=== PATIENT | male | born 1980 ===

== ENCOUNTER 2023-11-16 18:07 | Emergency (ER) | payer OTHER ==
[2023-11-16] MEDS: Sodium Chloride 0.9% 10 ML Syringe FLUSH PRN (18:42)
[2023-11-16 18:44] LABS: BASOPHILS PERCENT AUTO 0.4 % (0.0-1.0); EOSINOPHILS PERCENT AUTO 2.3 % (1.0-3.0); HEMATOCRIT 49.7 % (40.0-54.0); HEMOGLOBIN 17.6 g/dL (14.0-18.0); LYMPHOCYTES PERCENT AUTO 31.9 % (20.5-50.1); MEAN CORPUSCULAR HEMOGLOBIN 31.6 pg (27.0-34.0); MEAN CORPUSCULAR HGB CONC 35.4 g/dL (33.0-35.0); MEAN CORPUSCULAR VOLUME 89.2 fL (80-100); MONOCYTES PERCENT AUTO 7.7 % (2-8); NEUTROPHILS PERCENT AUTO 57.7 % (42.2-75.2); PLATELET COUNT,PLT 197 10^3/uL (150-450); RED BLOOD CELL COUNT 5.57 10^6/uL (4.6-6.2); WHITE BLOOD CELL COUNT,WBC 7.3 10^3/uL (5.0-10.0)
[2023-11-16] MEDS: Sodium Chloride 0.9% 1,000 ML IV ONE (18:47)
[2023-11-16] MEDS: levETIRAcetam in NaCl (iso-os) 1,000 MG in Premix Bag 1 BAG IV ONE (18:47)
[2023-11-16 19:07] LABS: A/G RATIO 1.2; ALANINE AMINOTRANSFERASE,ALT 142 U/L (16-63); ALBUMIN 4.3 g/dL (3.4-5.0); ALKALINE PHOSPHATASE 90 U/L (46-116); ANION GAP 18.1 mEq/L (7-13); ASPARTATE AMNIOTRANSFERASE,AST 58 U/L (15-37); BILIRUBIN TOTAL 0.3 mg/dL (0.2-1.0); BLOOD UREA NITROGEN,BUN 18 mg/dL (7-18); CALCIUM 9.2 mg/dL (8.5-10.1); CARBON DIOXIDE,CO2 24 mmol/L (21-32); CHLORIDE,CL 103 mmol/L (98-107); CREATININE 1.06 mg/dL (0.70-1.30); GLUCOSE RANDOM 227 mg/dL (70-99); POTASSIUM,K 4.1 mmol/L (3.5-5.1); SODIUM,NA 141 mmol/L (136-145)
[2023-11-16 19:13] LABS: ESTIMATED GFR 89 mL/min (>=60)
== END 2023-11-16 21:34 ==
LOC: DL.ED 18:07
DX: G40.909 Epilepsy, unspecified, not intractable, without status epilepticus (principal); E11.9 Type 2 diabetes mellitus without complications; I10 Essential (primary) hypertension; E78.5 Hyperlipidemia, unspecified; E78.00 Pure hypercholesterolemia, unspecified; Z86.16 Personal history of COVID-19; Z79.899 Other long term (current) drug therapy; Z79.84 Long term (current) use of oral hypoglycemic drugs; Z87.891 Personal history of nicotine dependence
CPT/HCPCS: 36415; 80053; 85025; 96361; 96365; 99284; 99284-25; J1953; J3490; J7030